=== PATIENT | male | born 1990 | race Caucasian/White ===

== ENCOUNTER 2016-12-24 20:11 | Emergency (ER) | payer BC ==
[2016-12-24 22:38] LABS: BASOPHILS 0.3 % (0-2); EOSINOPHILS 0 % (0-7); HEMATOCRIT 42.1 % (42.0-54.0); HEMOGLOBIN 14.4 g/dL (13.5-17.5); IMMATURE GRANULOCYTES 0.4 % (0-5); LYMPHOCYTES 10.8 % (15-50); MCH 31.9 pg (26.0-34.0); MCHC 34.2 g/dL (31.0-37.0); MCV 93.3 fL (80.0-100.0); MEAN PLATELET VOLUME 10.6 fL (7.4-10.4); MONOCYTES 9.3 % (2-11); NEUTROPHILS 79.2 % (40-80); PLATELET COUNT 259 10x3/uL (130-400); RBC 4.51 10x6/uL (4.20-6.10); RDW 12.7 % (11.5-14.5); WBC 13.8 10x3/uL (4.8-10.8)
[2016-12-24 22:47] LABS: ANION GAP 12.4 mmol/L (8-16); BILIRUBIN - TOTAL 0.43 mg/dL (0.2-1.3); CALCIUM 8.8 mg/dL (8.5-10.1); CARBON DIOXIDE 28.7 mmol/L (21.0-32.0); CREATININE - SERUM 1.4 mg/dL (0.6-1.3); POTASSIUM - SERUM 3.1 mmol/L (3.5-5.1); PROTEIN - SERUM 7.6 g/dL (6.4-8.2)
== END 2016-12-24 23:30 | disposition home or self-care (01) ==
LOC: D.ER 20:11
PROVIDERS: Family Medicine
DX: B34.9 Viral infection, unspecified (principal); J06.9 Acute upper respiratory infection, unspecified